=== PATIENT | female | born 1950 | race Caucasian/White ===

== ENCOUNTER 2021-05-07 10:44 | Outpatient (CLI) | payer MEDICARE, OTHER ==
--- NOTE | 2021-05-10 01:10 | DEXA Report ---
PROCEDURE: Dexa Spine and/or Hip INDICATIONS: POST MENOPAUSAL TECHNIQUE: Dual energy x-ray absorptiometry (DXA) was performed on a Jamplify System. Regions measur ed are the AP Spine, femoral neck, and if needed forearm. COMPARISON: None. FINDINGS: Lumbar Spine: Bone Mineral Density 0.874 g/cm/cm,T score -2.5, osteoporosis Left Hip: Bone Mineral Density 0.775 g/cm/cm,T score -1.8, osteopenia Left Femoral Neck: Bone Mineral Density 0.726 g/cm/cm, T score -2.2, osteopenia (T score greater or equal to -1.0: NORMAL) (T score from -1.1 to -2.4: OSTEOPENIA) (T score less than or equal to -2.5 to: OSTEOPOROSIS) Impression: 1. Osteoporosis demonstrated in the lumbar spine. 2. Osteopenia in the left hip and femoral neck. Patients with diagnosis of osteoporosis or osteopenia should have regular bone mineral density assess ment. For those eligible for Medicare, routine testing is allowed once every 2 years. Testing frequ ency can be increased for patients who have rapidly progressing disease or for those who are receivin g medical therapy to restore bone mass. Reviewed by: Romario Doshi MD on 05/10/2021 1:08 AM PST Approved by: Romario Doshi MD on 05/10/2021 1:08 AM PST Station ID: [id number]
== END 2021-05-07 10:45 | disposition home or self-care (01) ==
LOC: DI 10:44
PROVIDERS: ATTEND Nurse Practitioner Family
DX: M81.0 Age-related osteoporosis without current pathological fracture (principal); Z78.0 Asymptomatic menopausal state

== ENCOUNTER 2021-05-07 10:50 | Outpatient (CLI) | payer MEDICARE, OTHER ==
--- NOTE | 2021-05-10 10:28 | Mammography Report ---
BILATERAL DIGITAL SCREENING MAMMOGRAM 3D/2D: 05/07/2021 CLINICAL: Baseline exam. Routine screening. No prior exams were available for comparison. There are scattered fibroglandular elements in both br easts. There is an irregular equal density asymmetry with a spiculated and microlobulated margin in the righ t breast anterior depth superior region seen on the mediolateral oblique view only. There is archite ctural distortion associated with the asymmetry. There also is an oval equal density asymmetry with an obscured and circumscribed margin in the right breast at 12 o'clock middle depth. No other significant masses, calcifications, or other findings are seen in either breast. IMPRESSION: INCOMPLETE: NEEDS ADDITIONAL IMAGING EVALUATION The irregular equal density asymmetry in the right breast anterior depth superior region seen on the mediolateral oblique view only is indeterminate. Additional views with possible ultrasound are recom mended. The oval equal density asymmetry in the right breast at 12 o'clock middle depth most likely is a fibr oadenoma and is indeterminate. Additional views with possible ultrasound are recommended. This exam was interpreted at Station ID: [id number]. NOTE: For mammograms, a report in lay terms will be sent to the patient. Approximately 15% of breast malignancies will not be visualized mammographically. In the management of a palpable breast mass, a negative mammogram must not discourage biopsy of a clinically suspicious lesion. Electronically Signed By: Agnes ross/:05/07/2021 13:25:07 ACR BI-RADS Category 0: Incomplete 3340F PARENCHYMAL PATTERN: (A) - The breast(s) demonstrate(s) scattered fibroglandular densities. BI-RADS CATEGORY: (0) - 0 Mammo and [place] [id number] Immediate follow-up LATERALITY: (B)
== END 2021-05-07 10:51 | disposition home or self-care (01) ==
LOC: DI 10:50
PROVIDERS: ATTEND Nurse Practitioner Family
DX: Z12.31 Encounter for screening mammogram for malignant neoplasm of breast (principal); R92.8 Other abnormal and inconclusive findings on diagnostic imaging of breast

== ENCOUNTER 2021-06-11 08:51 | Outpatient (CLI) | payer MEDICARE, OTHER ==
--- NOTE | 2021-06-14 13:41 | Mammography Report ---
UNILATERAL RIGHT DIGITAL DIAGNOSTIC MAMMOGRAM 3D/2D: 06/11/2021 CLINICAL: Patient returns today to evaluate a focal asymmetry in the right breast. Comparison is made to exam dated: 05/07/2021 mammogram - [facility]. There are sc attered fibroglandular elements in right breast. There is an irregular equal density asymmetry with spiculated margins in the right breast anterior de pth superior region seen on the mediolateral oblique view only. This is less prominent and decreased in size. There is architectural distortion associated with the asymmetry. This is in close vicinity to scar marker seen on the previous study. There also is an oval equal density asymmetry with an obscured and circumscribed margin in the right breast at 12 o'clock middle depth. This is seen in additional views. No other significant masses or calcifications are seen in the breast. IMPRESSION: INCOMPLETE: NEEDS ADDITIONAL IMAGING EVALUATION The irregular equal density asymmetry in the right breast anterior depth superior region seen on the mediolateral oblique view only most represents scarring from previous surgery and is indeterminate. An ultrasound is recommended. The oval equal density asymmetry in the right breast at 12 o'clock middle depth most likely is a cyst or a fibroadenoma and is indeterminate. An ultrasound is recommended. The ultrasound is scheduled to immediately follow this exam. This exam was interpreted at Station ID: [id number]. NOTE: For mammograms, a report in lay terms will be sent to the patient. Approximately 15% of breast malignancies will not be visualized mammographically. In the management of a palpable breast mass, a negative mammogram must not discourage biopsy of a clinically suspicious lesion. Electronically Signed By: Umair Romo M.D. aty/:06/11/2021 09:49:37 ACR BI-RADS Category 0: Incomplete 3340F PARENCHYMAL PATTERN: (A) - The breast(s) demonstrate(s) scattered fibroglandular densities. BI-RADS CATEGORY: (0) - 0 Ultrasound [id number] Immediate follow-up LATERALITY: (R)
--- NOTE | 2021-06-14 13:41 | Ultrasound Report ---
LIMITED ULTRASOUND OF RIGHT BREAST AND AXILLA: 06/11/2021 CLINICAL: Patient returns today to evaluate a focal asymmetry in the right breast. Comparison is made to exams dated: 06/11/2021 mammogram and 05/07/2021 mammogram - [facility]. Color flow and real-time ultrasound of the right breast 12 o'clock, and axilla regions were performed . Barillas scale images of the real-time examination were reviewed. There is a 1.3 cm x 0.5 cm x 1 cm focally dilated duct in the right breast at 12 o'clock middle depth 5 cm from the nipple. This dilated duct displays internal echoes and suspected intraductal non-vasc ular mass. This likely correlates with mammography findings. Several contiguous dilated ducts noted . Color flow imaging demonstrates that there is no vascularity present. No significant abnormalities were seen sonographically in the right axilla. IMPRESSION: SUSPICIOUS OF MALIGNANCY The 1.3 cm x 0.5 cm x 1 cm focally dilated duct with intraductal mass in the right breast resembles a papilloma and is at a low suspicion for malignancy. An ultrasound guided biopsy is recommended. Findings and recommendations were discussed with the patient by Dr. Cervantes during today's examination. This exam was interpreted at Station ID: [id number]. Electronically Signed By: Umair Romo M.D. aty/:06/11/2021 12:26:55 Ultrasound BI-RADS: 4a Low suspicion for malignancy BI-RADS CATEGORY: (4a) - Low Susp None [id number] Immediate follow-up LATERALITY: ()
== END 2021-06-11 08:52 | disposition home or self-care (01) ==
LOC: DI 08:51
PROVIDERS: ATTEND Nurse Practitioner Family
DX: N63.15 Unspecified lump in the right breast, overlapping quadrants (principal)

== ENCOUNTER 2021-06-17 10:16 | Outpatient (CLI) | payer MEDICARE, OTHER ==
[~2021-06-17 10:16] MED LIST: LIDOCAINE 1% 10 ML MDV ONE; LIDOCAINE 1%-EPI 1:100000 20 ML MDV ONE
[2021-06-17] MEDS ORDERED: LIDOCAINE 1%-EPI 1:100000 20 ML MDV SUBQ ONE (12:03)
[2021-06-17] MEDS ORDERED: LIDOCAINE 1% 10 ML MDV SUBQ ONE (12:05)
--- NOTE | 2021-06-21 11:14 | Mammography Report ---
UNILATERAL RIGHT DIGITAL DIAGNOSTIC MAMMOGRAM 3D/2D: 06/17/2021 CLINICAL: Post right breast ultrasound biopsy clip placement imaging. Comparison is made to exams dated: 06/11/2021 ultrasound, 06/11/2021 mammogram, and 05/07/2021 mammo [facility]. There are scattered fibroglandular elements in right breast. There is a marker clip in the appropriate position in the right breast at 12 o'clock middle depth. T his marker clip placement is at the biopsy site. IMPRESSION: POST PROCEDURE MAMMOGRAM FOR MARKER PLACEMENT There was a successful marker clip placement in the right breast middle depth. This exam was interpreted at Station ID: [id number]. NOTE: For mammograms, a report in lay terms will be sent to the patient. Approximately 15% of breast malignancies will not be visualized mammographically. In the management of a palpable breast mass, a negative mammogram must not discourage biopsy of a clinically suspicious lesion. Electronically Signed By: Charu lazo/danie:06/17/2021 11:55:01 ACR BI-RADS Category Post-procedure mammogram for marker placement PARENCHYMAL PATTERN: (A) - The breast(s) demonstrate(s) scattered fibroglandular densities. BI-RADS CATEGORY: () - Unspecified - other recall n/a LATERALITY: (B)
--- NOTE | 2021-06-24 08:43 | Ultrasound Report ---
ULTRASOUND GUIDED BIOPSY RIGHT BREAST USING VACUUM DEVICE WITH MARKING DEVICE INSERTED AND POST DIGIT AL MAMMOGRAPHIC IMAGIN06/17/2021 CLINICAL: Right breast mass. PATIENT CONSENT: Risks (minor bleeding, infection, vasovagal reaction and repeat procedure), benefits and alternatives were explained to the patient and written informed consent was obtained. Correlation is made to exams dated: 06/11/2021 ultrasound, 06/11/2021 mammogram, and 05/07/2021 mamm ogram - [facility]. An ultrasound guided biopsy using real-time ultrasound was performed for the mass located in the righ t breast at 12 o'clock anterior depth. The skin was prepped in the usual manner. Local anesthetic w as administered to the access site. A skin aneesh was made in the breast. The abnormality was approac hed from the lateral aspect. A 13 gauge biopsy needle was placed adjacent to the abnormality under u ltrasound guidance. Once the needle was documented to be in the correct location, three specimens we re obtained using the Mammotome biopsy system. A HydroMark T3 biopsy clip was inserted into the biop sy cavity. A skin closure strip was applied to the access site. Post procedure digital mammographic imaging was obtained. The specimens were sent to the laboratory for pathological analysis. IMPRESSION: ULTRASOUND GUIDED BIOPSY BENIGN Ultrasound guided biopsy of the mass in the right breast at 12 o'clock anterior depth was successful. Pathology indicates benign focal fibrosis (FF). Pathology results are concordant with imaging find ings. Return to annual screening schedule is recommended. This exam was interpreted at Station ID: [id number]. Charu Richards M.D. violet,/danie:06/23/2021 14:59:15 BI-RADS CATEGORY: () - Unspecified - other [id number] return to screening LATERALITY: (B)
== END 2021-06-17 10:17 | disposition home or self-care (01) ==
LOC: DI 10:16
PROVIDERS: ATTEND Nurse Practitioner Family
DX: N60.31 Fibrosclerosis of right breast (principal)
CPT/HCPCS: 19083; 88305

== ENCOUNTER 2021-10-29 13:49 | Outpatient (CLI) | payer MEDICARE, OTHER ==
--- NOTE | 2021-10-29 14:25 | XRAY Report ---
PROCEDURE: Abdomen 1 View X-Ray INDICATIONS: ABDOMINAL PAIN TECHNIQUE: One view of the abdomen acquired. COMPARISON: None. FINDINGS: Surgical changes and devices: None. Bowel: Nonspecific bowel gas pattern. Soft tissues: No suspicious abdominal calcifications. Visualized solid organ contours appear normal in size. Bones: No suspicious bony lesions. IMPRESSION: 1.Nonspecific bowel gas pattern. Reviewed by: Waqar Peterson MD on 10/29/2021 2:24 PM PDT Approved by: Waqar Peterson MD on 10/29/2021 2:24 PM PDT Station ID: [id number]
== END 2021-10-29 13:50 | disposition home or self-care (01) ==
LOC: DI.S 13:49
PROVIDERS: ATTEND Nurse Practitioner Family
DX: R10.9 Unspecified abdominal pain (principal)

== ENCOUNTER 2021-10-29 16:07 | Emergency (ER) | payer MEDICARE, OTHER ==
[2021-10-29] MEDS ORDERED: SODIUM CHLORIDE 0.9% 1,000 ML IV STA (16:25)
[2021-10-29] MEDS ORDERED: METOCLOPRAMIDE 10 MG/2 ML VIAL IVP STA (16:25)
[2021-10-29] MEDS ORDERED: KETOROLAC 15 MG/ML VIAL IVP STA (16:25)
--- NOTE | 2021-10-29 16:26 | ED Physician Documentation ---
PD HPI ABD PAIN - Stated complaint Stated Complaint: ABD PX,VOMITING - Chief complaint Chief Complaint: Abd Pain - History obtained from History obtained from: Patient - Additional information Additional information: 71-year-old woman with history of remote hysterectomy and hypercholesterolemia ate too much popcorn she thinks on Monday, 2 days ago but felt okay that night. After having lunch of street tacos yesterday midday she developed upper abdominal pain radiating to both sides and the back. The back radiation is resolved. It is associated with vomiting despite her primary care nurse tony duarte prescribing ondansetron which was not helpful. Bowel movements have been normal. No blood in the vomit. We checked her urine as well as plan to come back Review of Systems Ten Systems: 10 systems reviewed and negative Constitutional: denies: Fever, Chills Cardiac: denies: Chest pain / pressure, Palpitations, Pedal edema, Calf pain Respiratory: denies: Dyspnea, Cough PD PAST MEDICAL HISTORY - Allergies Allergies/Adverse Reactions: Allergies Allergy/AdvReac Type Severity Reaction Status Date / Time No Known Drug Allergies Allergy Verified 10/29/21 16:16 PD ED PE NORMAL - Vitals Vital signs reviewed: Yes - General General: Alert and oriented X 3, No acute distress - HEENT HEENT: PERRL, EOMI - Neck Neck: Supple, no meningeal sign, No bony TTP - Cardiac Cardiac: RRR, No murmur - Respiratory Respiratory: No respiratory distress, Clear bilaterally - Abdomen Abdomen: Other (Diminished but not absent bowel sounds, soft and nontender throughout) - Back Back: No CVA TTP, No spinal TTP - Derm Derm: Normal color, Warm and dry - Extremities Extremities: No edema, No calf tenderness / cord - Neuro Neuro: Alert and oriented X 3, Normal speech Results - Vitals Vitals: Vital Signs - 24 hr 10/29/21 10/29/21 16:11 20:00 Temperature 36.6 C 36.6 C Heart Rate 61 79 Respiratory 16 18 Rate Blood Pressure 149/64 H 119/69 O2 Saturation 99 97 Oxygen O2 Source Room air - EKG (time done) 1816 Rate: Rate (enter#) (55) Rhythm: NSR [place]: Normal Intervals: Normal DC QRS: Low voltage Ischemia: Normal ST segments - Labs Labs: Laboratory Tests 10/29/21 10/29/21 10/29/21 16:25 16:34 16:34 WBC 14.4 H RBC 5.21 Hgb 15.8 Hct 46.1 MCV 88.5 MCH 30.3 MCHC 34.3 RDW 12.7 Plt Count 279 MPV 9.7 Neut # (Auto) 12.5 H Lymph # (Auto) 1.2 L Garrett # (Auto) 0.5 Eos # (Auto) 0.0 Baso # (Auto) 0.1 Absolute Nucleated RBC 0.00 Nucleated RBC % 0.0 Sodium 131 L Potassium 3.6 Chloride 94 L Carbon Dioxide 24 Anion Gap 13.0 BUN 12 Creatinine 0.7 Estimated GFR (MDRD) 83 L Glucose 126 H Calcium 9.6 Total Bilirubin 1.1 H AST 23 ALT 20 Alkaline Phosphatase 65 Troponin I High Sens 8.9 Total Protein 7.7 Albumin 4.5 Globulin 3.2 Albumin/Globulin Ratio 1.4 Lipase 27 SARS-CoV-2 (PCR) 10/29/21 18:35 WBC RBC Hgb Hct MCV MCH MCHC RDW Plt Count MPV Neut # (Auto) Lymph # (Auto) Garrett # (Auto) Eos # (Auto) Baso # (Auto) Absolute Nucleated RBC Nucleated RBC % Sodium Potassium Chloride Carbon Dioxide Anion Gap BUN Creatinine Estimated GFR (MDRD) Glucose Calcium Total Bilirubin AST ALT Alkaline Phosphatase Troponin I High Sens Total Protein Albumin Globulin Albumin/Globulin Ratio Lipase SARS-CoV-2 (PCR) NOT DETECTED PD MEDICAL DECISION MAKING - ED course ED course: 71-year-old woman presents with upper abdominal pain radiating to either side. She was comfortable after dose of Toradol. Work-up here shows evidence of cholecystitis. Operating room here closed through the weekend due to staffing issues. Calling around to try to find a place for her. She was administered Unasyn. Discussed with patient there may be a prolonged length of stay/boarding in the emergency department given that on initial go around it seems like most other local hospitals are full and cannot accommodate her in transfer. The [facility] had tried [place], [facility], the [facility] system without success. Departure - Departure Disposition: 02 Transfer Acute Care Hosp Clinical Impression: Cholecystitis Condition: Stable
[2021-10-29 16:41] LABS: BASOPHILS # (AUTO) 0.1 10^3/uL (0.0-0.1); BASOPHILS % (AUTO) 0.5 %; HCT - HEMATOCRIT 46.1 % (37.0-47.0); HGB - HEMOGLOBIN 15.8 g/dL (12.0-16.0); LYMPHOCYTES # (AUTO) 1.2 10^3/uL (1.5-3.5); LYMPHOCYTES % (AUTO) 8.5 %; MEAN CORPUSCULAR HEMOGLOBIN 30.3 pg (27.0-31.0); MEAN CORPUSCULAR HGB CONC 34.3 g/dL (32.0-36.0); MEAN CORPUSCULAR VOLUME 88.5 fL (81.0-99.0); MEAN PLATELET VOLUME 9.7 fL (7.9-10.8); MONOCYTES # (AUTO) 0.5 10^3/uL (0.0-1.0); MONOCYTES % (AUTO) 3.5 %; NEUTROPHILS # (AUTO) 12.5 10^3/uL (1.5-6.6); NEUTROPHILS % (AUTO) 87.1 %; PLT - PLATELET COUNT 279 10^3/uL (130-450); RED BLOOD COUNT 5.21 10^6/uL (4.20-5.40); RED CELL DISTRIBUTION WIDTH 12.7 % (12.0-15.0); WHITE BLOOD COUNT 14.4 x10^3/uL (4.8-10.8)
[2021-10-29] MEDS ORDERED: IOPAMIDOL-300 100 ML VIAL ONE (16:42)
[2021-10-29 17:18] LABS: ALBUMIN 4.5 g/dL (3.2-5.5); ALBUMIN/GLOBULIN RATIO 1.4 (1.0-2.2); BILIRUBIN,TOTAL 1.1 mg/dL (0.2-1.0); CALCIUM 9.6 mg/dL (8.5-10.3); CREATININE 0.7 mg/dL (0.4-1.0); POTASSIUM 3.6 mmol/L (3.5-5.0); TOTAL PROTEIN 7.7 g/dL (6.7-8.2)
[2021-10-29] MEDS ORDERED: IOPAMIDOL-300 100 ML VIAL IVP ONE (17:35)
--- NOTE | 2021-10-29 18:01 | CT Report ---
PROCEDURE: Abdomen/Pelvis W INDICATIONS: IV only, upper abd pain CONTRAST: IV CONTRAST: Isovue 300 ml: 100 PO CONTRAST: *NO PO CONTRAST TECHNIQUE: After the administration of intravenous contrast, 5 mm thick sections acquired from the diaphragms to the symphysis. 5 mm thick coronal and sagittal reformats were acquired. For radiation dose reducti on, the following was used: automated exposure control, adjustment of mA and/or kV according to katia ent size. COMPARISON: None. FINDINGS: Image quality: Excellent. ABDOMEN: Lung bases: Lung bases are clear. Heart size is normal. Solid organs: Liver and spleen are normal in size and enhancement. Diffuse fatty infiltration of the liver. Gallbladder is distended. Gallbladder contains a stone that measures up to 2.2 cm. There is m ild thickening of the gallbladder wall. Small amount of pericholecystic fluid is noted. Biliary syst em is non dilated. Pancreas enhances normally. No adrenal nodules. Kidneys demonstrate normal size and enhancement, without hydronephrosis. Bilateral renal cysts. Peritoneum and bowel: Bowel loops demonstrate normal wall thickness and caliber. No free fluid or a ir. The appendix is normal. Nodes and vessels: No retroperitoneal or mesenteric adenopathy by size criteria. Aorta and inferior vena cava are normal in size. Miscellaneous: No ventral hernias. PELVIS: Genitourinary: Bladder wall thickness is normal. Uterus is absent. 2.8 cm right adnexal region cyst. Miscellaneous: No inguinal hernias or adenopathy. Bones: No suspicious bony lesions. No vertebral body compression fractures. Spine degenerative disc disease and facet arthropathy are noted. Mild L4-L5 degenerative spondylolisthesis. IMPRESSION: 1. Cholelithiasis with mild gallbladder wall thickening and pericholecystic fluid most compatible wit h acute cholecystitis. 2. The appendix is normal. 3. No free peritoneal fluid or free air. Reviewed by: Charu Mar MD, PhD on 10/29/2021 6:00 PM PDT Approved by: Charu Mar MD, PhD on 10/29/2021 6:00 PM PDT Station ID: [id number]
[2021-10-29] MEDS ORDERED: AMPICILLIN/SULBACTAM 3 GM in SODIUM CHLORIDE 0.9% MINIBAG 100 ML IV STA (18:18)
[2021-10-29] MEDS ORDERED: D5.45NS W/20 MEQ KCL 1,000 ML IV STA (21:56)
[2021-10-29] MEDS ORDERED: AMPICILLIN/SULBACTAM 3 GM in SODIUM CHLORIDE 0.9% MINIBAG 100 ML IV SCH (22:00)
[2021-10-29] MEDS ORDERED: HYDROmorphone 1 MG/ML CARPUJECT IVP STA (22:49)
--- NOTE | 2021-10-29 23:37 | ED Physician Documentation ---
ED Addendum - Addendum Addendum: 10/29/21 23:34 The patient did request some more pain medicine. She was given a milligram of hydromorphone IV. Otherwise IV crystalloid infusion discontinued. We did hear from [facility] nursing supervisor lead refinery who had been contacted by the transfer coordinating board. She states they are able to accept the patient in transfer and page their surgeon who then contacted me. I reviewed the case with their general surgeon who accepted transfer. The patient is Dr. Maxwell Sam. The patient will be transported by ambulance to the receiving facility. Disposition: The patient is transferred to acute [facility] in stable condition. Diagnoses: 1. Upper abdominal pain and vomiting 2. Acute cholecystitis 3. leukocytosis.
[2021-10-30 00:05] VITALS: BP 119/62
[2021-10-30] MEDS ORDERED: PANTOPRAZOLE 40 MG VIAL IVP SCH (09:00)
== END 2021-10-30 00:30 | disposition short-term general hospital (02) ==
LOC: ED 16:07
DX: K81.9 Cholecystitis, unspecified (principal); D72.829 Elevated white blood cell count, unspecified; Z20.822 Contact with and (suspected) exposure to COVID-19
CPT/HCPCS: 36415; 74018; 74177; 80053; 83690; 84484; 85025; 87635; 93005; 96365; 96366; 96375; 99284; 99285; J1170; J2765; Q9967

== ENCOUNTER 2021-10-30 00:31 | Outpatient (CLI) | payer MEDICARE, OTHER | END 2021-10-30 00:32 | disposition short-term general hospital (02) | LOC: EMS 00:31 | PROVIDERS: ATTEND Emergency Medicine | DX: K81.0 Acute cholecystitis (principal) | CPT/HCPCS: A0425; A0426 ==

== ENCOUNTER 2023-08-22 13:41 | Outpatient (CLI) | payer MEDICARE, OTHER ==
--- NOTE | 2023-08-23 09:43 | Mammography Report ---
BILATERAL DIGITAL SCREENING MAMMOGRAM 3D/2D: 08/22/2023 CLINICAL: Routine screening. Comparison is made to exams dated: 06/17/2021 mammogram, 06/11/2021 mammogram, 05/07/2021 mammogram, and 06/17/2021 ultrasound biopsy - [facility]. Both breasts are heterogeneously dense, which may obscure small masses (category c / 51-75% glandular tissue). There is a biopsy clip in the right breast. No significant masses, calcifications, or other findings are seen in either breast. There has been no significant interval change. IMPRESSION: NEGATIVE There is no mammographic evidence of malignancy. A 1 year screening mammogram is recommended. Based on the Tyrer Cuzick model (a risk assessment model) the patient's lifetime risk is 5.7% and her 10 year risk is 4.2%. According to the ACR, ACS, and NCCN guidelines, an annual breast MRI exam sabina g with mammogram is recommended if the patient's lifetime risk is 20% or greater. This exam was interpreted at Station ID: [id number]. NOTE: For mammograms, a report in lay terms will be sent to the patient. Approximately 15% of breast malignancies will not be visualized mammographically. In the management of a palpable breast mass, a negative mammogram must not discourage biopsy of a clinically suspicious lesion. Electronically Signed By: Demetri arboleda/danie:08/22/2023 14:57:43 letter sent: No_Letter ACR BI-RADS Category 1: Negative 3341F PARENCHYMAL PATTERN: (D) - The breast(s) demonstrate(s) heterogeneously dense fibroglandular [facility]. BI-RADS CATEGORY: (1) - 1 Mammogram [id number] 1 year screening LATERALITY: (B)
== END 2023-08-22 13:42 | disposition home or self-care (01) ==
LOC: DI 13:41
PROVIDERS: ATTEND Nurse Practitioner Family
DX: Z12.31 Encounter for screening mammogram for malignant neoplasm of breast (principal); R92.333 Mammographic heterogeneous density, bilateral breasts

== ENCOUNTER 2023-08-22 14:16 | Outpatient (CLI) | payer MEDICARE, OTHER ==
--- NOTE | 2023-08-22 16:58 | DEXA Report ---
PROCEDURE: Dexa Spine and/or Hip INDICATIONS: OSTEOPOROSIS TECHNIQUE: Dual energy x-ray absorptiometry (DXA) was performed on a Cuil System. Regions measur ed are the AP Spine, femoral neck, and if needed forearm. COMPARISON: 05/10/2021 FINDINGS: Lumbar Spine: Bone Mineral Density: 0.885 g/cm/cm,T score: -2.5. There has been no statistically significant barba e in bone mineral density since the prior study. Left Femoral Neck: Bone Mineral Density: 0.719 g/cm/cm, T score: -2.3. Left Hip: Bone Mineral Density: 0.768 g/cm/cm,T score: -1.9. There has been no statistically significant change in bone mineral density since the prior study. (T score greater or equal to -1.0: NORMAL) (T score from -1.1 to -2.4: OSTEOPENIA) (T score less than or equal to -2.5 to: OSTEOPOROSIS) Impression: By WHO criteria, this patient has osteoporosis. Osteoporosis of the lumbar spine. Osteopenia of the hip. Patients with diagnosis of osteoporosis or osteopenia should have regular bone mineral density assess ment. For those eligible for Medicare, routine testing is allowed once every 2 years. Testing frequ ency can be increased for patients who have rapidly progressing disease or for those who are receivin g medical therapy to restore bone mass. Reviewed by: Umair Romo MD on 08/22/2023 4:56 PM PST Approved by: Umair Romo MD on 08/22/2023 4:56 PM PST Station ID: [id number]
== END 2023-08-22 14:17 | disposition home or self-care (01) ==
LOC: DI 14:16
PROVIDERS: ATTEND Nurse Practitioner Family
DX: M81.0 Age-related osteoporosis without current pathological fracture (principal)